=== PATIENT | male | born 1950 | race Caucasian/White ===

== ENCOUNTER 2019-06-17 06:07 | Inpatient (IN) | payer OTHER ==
[~2019-06-17] VITALS: Ht 175.3 cm; Wt 82.6 kg
[~2019-06-17 06:07] MED LIST: ASPI-650 PO; ATOR40TA78 PO
[2019-06-17] MEDS ORDERED: LACTATED RINGERS 1,000 ML IV SCH (06:55)
[2019-06-17] MEDS ORDERED: EPINEPHRINE 1 MG/ML, 1ML ONE (07:10)
[2019-06-17] MEDS ORDERED: LIDOCAINE 1%, 20ML ONE (07:10)
[2019-06-17] MEDS ORDERED: HEPARIN 5,000 UNITS/ML, 1ML ONE (07:10)
[2019-06-17] MEDS ORDERED: THROMBIN 5,000 UNIT VIAL TP ONE (07:10)
[2019-06-17] MEDS ORDERED: BUPIVACAINE/PF 0.5% ONE (07:10)
[2019-06-17] MEDS ORDERED: PAPAVERINE 30 MG/ML, 2ML ONE (07:10)
[2019-06-17] MEDS ORDERED: PROTAMINE SULFATE 10 MG/ML, 5ML ONE (07:10)
[2019-06-17] MEDS ORDERED: BACITRACIN 50,000 UNIT ONE (07:11)
[2019-06-17] MEDS ORDERED: FENTANYL PF 100 MCG/2ML ONE ×2 (07:12→08:24)
[2019-06-17] MEDS ORDERED: MIDAZOLAM 1 MG/ML, 2ML ONE (07:12)
[2019-06-17] MEDS ORDERED: PROPOFOL 10 MG/ML, 20ML ONE (07:13)
[2019-06-17] MEDS ORDERED: SUCCINYLCHOLINE 20 MG/ML, 10ML ONE (07:13)
[2019-06-17] MEDS ORDERED: CEFAZOLIN 1,000 MG ONE (07:13)
[2019-06-17] MEDS ORDERED: ONDANSETRON 2MG/ML, 2ML ONE (07:13)
[2019-06-17] MEDS ORDERED: ROCURONIUM 10MG/ML,5ML ONE (07:13)
[2019-06-17] MEDS ORDERED: NEOSTIGMINE 1 MG/ML, 10ML ONE (07:13)
[2019-06-17] MEDS ORDERED: LIDOCAINE-MPF 2% ,5ML ONE (07:13)
[2019-06-17] MEDS ORDERED: DEXAMETHASONE 4 MG/ML, 1ML ONE (07:13)
[2019-06-17] MEDS ORDERED: GLYCOPYRROLATE 0.2MG/1ML, 5ML ONE (07:13)
[2019-06-17] MEDS ORDERED: KETOROLAC 30 MG/1 ML ONE (07:44)
[2019-06-17] MEDS ORDERED: PROMETHAZINE 25 MG/ML, 1ML IV PRN (08:00)
[2019-06-17] MEDS ORDERED: ONDANSETRON 2MG/ML, 2ML IV PRN ×2 (08:00→12:30)
[2019-06-17] MEDS ORDERED: ACETAMINOPHEN 325 MG TABLET PO PRN (08:00)
[2019-06-17] MEDS ORDERED: hydrALAzine 20 MG/ML, 1ML IV PRN (08:00)
[2019-06-17] MEDS ORDERED: LABETALOL 5MG/ML, 20ML IV PRN (08:00)
[2019-06-17] MEDS ORDERED: HYDROmorphone 2 MG/ML, 1ML IVPush PRN (08:00)
[2019-06-17] MEDS ORDERED: FENTANYL PF 100 MCG/2ML IV PRN (08:00)
[2019-06-17] MEDS ORDERED: EPHEDRINE 50 MG/ML, 1ML IVPush PRN (08:00)
[2019-06-17] MEDS ORDERED: MEPERIDINE/PF 25MG/ML,1ML IVPush PRN (08:00)
[2019-06-17] MEDS ORDERED: HYDROcodone/APAP 7.5-325MG/15ML UDC PO PRN (08:00)
[2019-06-17] MEDS ORDERED: SODIUM CHLORIDE 0.9% PF 10ML ONE (08:30)
[2019-06-17 11:45] VITALS: BP 102/52
[2019-06-17] MEDS ORDERED: HYDROcodone/APAP 5/325 TABLET PO PRN (12:30)
[2019-06-17] MEDS ORDERED: morphine SULFATE 10 MG/ML, 1ML IV PRN (12:30)
[2019-06-17] MEDS ORDERED: LABETALOL 5MG/ML, 20ML IVPush PRN (12:30)
[2019-06-17] MEDS ORDERED: NITROPRUSSIDE 50 MG in DEXTROSE 5% 248 ML IV SCH (12:30)
[2019-06-17] MEDS ORDERED: PHENYLEPHRINE 10 MG in DEXTROSE 5% 249 ML IV SCH (12:30)
[2019-06-17] MEDS ORDERED: HEPARIN 1,000 UNITS/ML, 10ML ONE (12:40)
[2019-06-17] MEDS: POTASSIUM CHLORIDE 20 MEQ in D5%-0.45% NACL 1,000 ML IV SCH (12:48)
[2019-06-17 13:45] VITALS: BP 89/55
[2019-06-17] MEDS: CEFAZOLIN PMX 1GM/50ML 50 ML IVPB SCH ×2 (15:25→23:26)
[2019-06-17 19:38] VITALS: BP 96/55
[2019-06-17] MEDS ORDERED: ATORVASTATIN 40 MG TABLET PO SCH (21:00)
[2019-06-18 00:01] VITALS: BP 102/61
[2019-06-18] MEDS: POTASSIUM CHLORIDE 20 MEQ in D5%-0.45% NACL 1,000 ML IV SCH (00:03)
[2019-06-18] MEDS ORDERED: ASPIRIN 325 MG TABLET EC PO SCH (06:00)
[2019-06-18 06:04] VITALS: BP 108/65
[2019-06-18 08:00] VITALS: BP 128/62
[2019-06-18] MEDS ORDERED: HYDR-3240 PO (08:39)
== END 2019-06-18 09:27 | disposition home or self-care (01) | DRG 39 ==
LOC: ORIP 06:07 → 4NE 11:44
PROVIDERS: ADMIT Surgery Vascular Surgery; ATTEND Surgery Vascular Surgery
PROC: 03CJ0ZZ Extirpation of Matter from Left Common Carotid Artery, Open Approach (ICD-10-PCS; 2019-06-17)
PROC: 03UJ0KZ Supplement Left Common Carotid Artery with Nonautologous Tissue Substitute, Open Approach (ICD-10-PCS; 2019-06-17)
PROC: 03UL0KZ Supplement Left Internal Carotid Artery with Nonautologous Tissue Substitute, Open Approach (ICD-10-PCS; 2019-06-17)
PROC: 03HY32Z Insertion of Monitoring Device into Upper Artery, Percutaneous Approach (ICD-10-PCS; 2019-06-17)
PROC: 03CL0ZZ Extirpation of Matter from Left Internal Carotid Artery, Open Approach (ICD-10-PCS; principal; 2019-06-17 07:30)
DX: I65.22 Occlusion and stenosis of left carotid artery (principal); E78.5 Hyperlipidemia, unspecified; N40.0 Benign prostatic hyperplasia without lower urinary tract symptoms; Z79.899 Other long term (current) drug therapy
CPT/HCPCS: 36415; J3490; S0020; 86850; 86900; 93005; 95938; 95941; C1729; G0378; J0171; J0690; J1100; J1644; J1885; J2250; J2405; J2704; J2710; J2720; J3010; J3480; C1768; J0330; J2440; J7120

== ENCOUNTER → 2019-06-21 | Outpatient (CLI) | payer OTHER ==
[~2019-06-21] MED LIST changes: +HYDR-3240 PO
== END | disposition home or self-care (01) ==
LOC: CFH 11:30
PROVIDERS: ATTEND Internal Medicine Cardiovascular Disease
DX: R06.02 Shortness of breath (principal); R07.9 Chest pain, unspecified
CPT/HCPCS: 78452; 93017; A9502

== ENCOUNTER 2020-01-06 13:14 | Outpatient (CLI) | payer OTHER | END 2020-01-06 23:59 | disposition home or self-care (01) | LOC: CVU 13:14 | PROVIDERS: ATTEND Surgery Vascular Surgery | DX: I65.23 Occlusion and stenosis of bilateral carotid arteries (principal) | CPT/HCPCS: 93880 ==

== ENCOUNTER → 2021-02-25 | Outpatient (CLI) | payer OTHER ==
[~2021-02-25] MED LIST changes: +ASPI-1026 PO; -ASPI-650 PO; +HYDR-2214 PO; -HYDR-3240 PO
== END | disposition home or self-care (01) ==
LOC: CVU 12:41
PROVIDERS: ATTEND Surgery Vascular Surgery
DX: I65.23 Occlusion and stenosis of bilateral carotid arteries (principal)
CPT/HCPCS: 93880